=== PATIENT | female | born 1960 | race Hispanic/Latino ===

== ENCOUNTER 2025-01-14 10:57 | Emergency (ER) | payer OTHER, MEDICARE ==
[~2025-01-14] VITALS: Ht 142.2 cm; Wt 108.9 kg
[~2025-01-14 10:57] MED LIST: DOXYCYCLINE HY100 MG PO; ONDANSETRON ODT4 MG SL
[2025-01-14 11:05] VITALS: PULSE 109; RESP 17; TEMP 100.5
[2025-01-14] MEDS ORDERED: DICYCLOMINE HCL 20 MG/2 ML VIAL IM ONE (11:30)
[2025-01-14] MEDS ORDERED: SODIUM CHLORIDE 0.9% 1000ML 1,000 ML IV SCH (11:30)
[2025-01-14 11:58] LABS: BILIRUBIN,URINE NEGATIVE (NEGATIVE); CLARITY,URINE CLOUDY (CLEAR); COLOR,URINE YELLOW (YELLOW); GLUCOSE, URINE NEGATIVE (NEGATIVE); KETONES,URINE NEGATIVE (NEGATIVE); LEUKOCYTE ESTERASE ,URINE MODERATE (NEGATIVE); NITRITE,URINE POSITIVE (NEGATIVE); PH,URINE 5.5 (5 - 7); PROTEIN,URINE DIPSTICK >=300 (NEGATIVE); URINE UROBILINOGEN 0.2 mg/dL (0.2 - 1)
[2025-01-14 12:20] LABS: BACTERIA,URINE FEW /HPF; EPITHELIAL CELLS,URINE RARE /LPF; WBC,URINE (MAN) >50 /HPF (0-5)
[2025-01-14] MEDS ORDERED: CEFDINIR300 MG PO (12:23)
[2025-01-14] MEDS: ACETAMINOPHEN 325 MG TAB PO ONE (12:32)
[2025-01-14] MEDS: KETOROLAC TROMETHAMINE 30 MG/ML VIAL IM STA (12:32)
[2025-01-14] MEDS: SODIUM CHLORIDE 0.9% 1000ML 1,000 ML IV SCH (12:33)
[2025-01-14 13:57] VITALS: BP 117/58; PULSE 86; RESP 18; TEMP 98.7; O2SAT 98
== END 2025-01-14 13:59 | disposition home or self-care (01) ==
LOC: ER 11:03
DX: R50.9 Fever, unspecified (principal); N39.0 Urinary tract infection, site not specified; R10.11 Right upper quadrant pain; I10 Essential (primary) hypertension; E11.9 Type 2 diabetes mellitus without complications; E03.9 Hypothyroidism, unspecified; G47.30 Sleep apnea, unspecified; E66.9 Obesity, unspecified; M54.9 Dorsalgia, unspecified; G89.29 Other chronic pain
CPT/HCPCS: 81001; 99284; J1885; J7030